=== PATIENT | female | born 1950 ===

== ENCOUNTER 2022-09-24 14:50 | Emergency (ER) | payer MEDICARE, OTHER ==
[2022-09-24 15:01] VITALS: BP 116/62
--- NOTE | 2022-09-24 15:38 | ED Physician Documentation ---
History of Present Illness - Stated complaint Stated Complaint: C+ CHILLS/COUGH/THROAT PX - Chief complaint Chief Complaint: Resp - History obtained from History obtained from: Patient, Family - History of Present Illness Timing: Yesterday Pain level max: 0 Pain level now: 0 - Additonal information Additional information: 72-year-old female presents to the emergency department stating she tested positive for COVID today. She is supposed to go on a trip tonight. She has had all of her COVID vaccinations and boosters. No fevers. No chills. Has had rhinorrhea, congestion and dry cough. Review of Systems Constitutional: denies: Fever, Chills Nose: reports: Rhinorrhea / runny nose, Congestion Respiratory: reports: Cough GI: denies: Abdominal Pain, Vomiting, Diarrhea Skin: denies: Rash Musculoskeletal: denies: Neck pain, Back pain Neurologic: denies: Headache PD PAST MEDICAL HISTORY - Past Medical History Past Medical History: Yes Psych: Depression - Allergies Allergies/Adverse Reactions: Allergies Allergy/AdvReac Type Severity Reaction Status Date / Time acetaminophen [From Vicodin] Allergy Unknown Verified 09/24/22 15:01 hydrocodone [From Vicodin] Allergy Unknown Verified 09/24/22 15:01 - Living Situation Living Situation: reports: With family Living Arrangement: reports: At home - Social History Does the pt have substance abuse?: No PD ED PE NORMAL - Vitals Vital signs reviewed: Yes - General General: Alert and oriented X 3, No acute distress - HEENT HEENT: Moist mucous membranes - Neck Neck: Supple, no meningeal sign - Cardiac Cardiac: RRR, Strong equal pulses - Respiratory Respiratory: No respiratory distress, Clear bilaterally - Abdomen Abdomen: Soft, Non tender, Non distended - Derm Derm: Warm and dry - Neuro Neuro: Alert and oriented X 3 - Psych Psych: Normal mood, Normal affect Results - Vitals Vitals: Vital Signs - 24 hr 09/24/22 14:55 Temperature 36.4 C L Heart Rate 69 Respiratory 16 Rate Blood Pressure 116/62 O2 Saturation 98 Oxygen O2 Source Room air - Labs Labs: Laboratory Tests 09/24/22 15:05 SARS-CoV-2 (PCR) DETECTED A PD Medical Decision Making - ED course Complexity details: reviewed results, re-evaluated patient, considered differential, d/w patient ED course: Patient is positive for COVID. Patient is well-appearing, nontoxic. Afebrile. No hypoxia. No respiratory distress. Patient declines any antiviral therapy. Patient counseled regarding signs and symptoms for which I believe and urgent re-evaluation would be necessary. Patient with good understanding of and agreement to plan and is comfortable going home at this time This document was made in part using voice recognition software. While efforts are made to proofread this document, sound alike and grammatical errors may occur. Departure - Departure Disposition: 01 Home, Self Care Clinical Impression: COVID-19 Condition: Good Instructions: ED Viral Syndrome Follow-Up: your,doctor as needed [Other] Comments: You have tested positive for COVID today. Continue to drink plenty of fluids at home. Return if you worsen. Follow-up with your doctor as needed for further care. Forms: Activity restrictions Discharge Date/Time: 09/24/22 18:28
== END 2022-09-24 18:28 | disposition home or self-care (01) ==
LOC: ED 14:50
DX: U07.1 COVID-19 (principal)
CPT/HCPCS: 99283